=== PATIENT | female | born 1935 | race Caucasian/White ===

== ENCOUNTER 2017-04-03 15:08 | Emergency (ER) | payer OTHER ==
[~2017-04-03] VITALS: Ht 167.6 cm; Wt 62.7 kg
[~2017-04-03 15:08] MED LIST: ANTIVERT25 MG PO; BIOTIN1000 MICRO PO; CENTRUM SILVER1 EAC3 PO; LO-DOSE ASPIRIN81 M1 PO; NORVASC10 MG PO; TIMOLOL LEFT EYE; TIMOPTIC-0100 DROP/1 LEFT EYE; VITAMIN D400 UNIT PO; XALATAN2.5 ML BOTH EYES; ZESTRIL40 MG PO
[2017-04-03] MEDS ORDERED: LOSARTAN POTAS100 MG PO (15:18)
[2017-04-03] MEDS ORDERED: AMLODIPINE BESYL5 MG PO (15:18)
[2017-04-03] MEDS ORDERED: VITAMIN B-12 (15:19)
[2017-04-03 17:07] LABS: ADD MIUA? YES; BILIRUBIN NEGATIVE; BLOOD SMALL; COLOR STRAW ((YELLOW)); GLUCOSE (STRIP) NEGATIVE; KETONES NEGATIVE; LEUKOCYTES MODERATE; NITRITE NEGATIVE; PROTEIN (STRIP) NEGATIVE; SPECIFIC GRAVITY 1.004 (1.000-1.030); UROBILINOGEN 0.2 MG/DL (0.2-1.0)
[2017-04-03 17:14] LABS: BACTERIA RARE /HPF; EPITHELIAL CELLS RARE /HPF; MUCUS NONE SEEN /LPF; RED BLOOD CELLS 0-5 /HPF (0-5); UCUL ADDED? YES; WHITE BLOOD CELLS 15-20 /HPF (0-5)
[2017-04-03 17:42] VITALS: BP 189/84
== END 2017-04-03 17:42 | disposition home or self-care (01) ==
LOC: EME 15:08
PROVIDERS: Nurse Practitioner Family
PROC: 0HQ0XZZ Repair Scalp Skin, External Approach (ICD-10-PCS; principal; 2017-04-03)
DX: S01.01XA Laceration without foreign body of scalp, initial encounter (principal); W01.190A Fall on same level from slipping, tripping and stumbling with subsequent striking against furniture, initial encounter; Y92.009 Unspecified place in unspecified non-institutional (private) residence as the place of occurrence of the external cause; I10 Essential (primary) hypertension; Z85.3 Personal history of malignant neoplasm of breast; Z90.10 Acquired absence of unspecified breast and nipple; Z88.8 Allergy status to other drugs, medicaments and biological substances; Z87.891 Personal history of nicotine dependence; G30.9 Alzheimer's disease, unspecified; Z79.82 Long term (current) use of aspirin
CPT/HCPCS: 70450; 81003; 87086 GA; 99281; 99285